=== PATIENT | female | born 1950 | race Caucasian/White ===

== ENCOUNTER → 2016-07-09 | Outpatient (CLI) | payer MEDICARE ==
[2016-07-09 13:05] LABS: Blood Urea Nitrogen 18 mg/dL (7-17); Non-African American GFR(MDRD) >60 (>60 ml/min/1.73 sqM)
--- NOTE | 2016-07-09 15:41 | MR ---
EXAMINATION TYPE: MR shoulder RT w con DATE OF EXAM: 07/09/2016 1:52 PM COMPARISON: Prior MRI right shoulder August 09, 2014 HISTORY: Rotator cuff tear per order. Right shoulder pain with difficulty raising overhead, history o f surgery rotator cuff November 20, 2015. TECHNIQUE: Multiplanar, multisequence images of the right shoulder is performed with 15 mL intravenou s MultiHance gadolinium contrast. FINDINGS: Exam is suboptimal as is degraded by patient body habitus and motion. Rotator Cuff: There is artifact from rotator cuff surgical repair in the humeral head now present. There is completely retracted tear of supraspinatus tendon with tendon retraction to the clavicle lev el seen best on paracoronal image 11 noted. There is moderate to advanced atrophy of supraspinatus mu scle bulk redemonstrated. The infraspinatus tendon is felt to remain intact. High riding humeral head is redemonstrated. Retracted tear of subscapularis tendon is felt present. Acromioclavicular Joint: There is capsular hypertrophy and heterogeneous enhancement at acromioclavic ular joint. Spurring is seen. Glenohumeral Joint: There is moderate to severe glenohumeral joint effusion. There is abnormal fluid and rim enhancement of fluid collection surrounding glenoid cavity and the humeral head. Fluid extend s into subdeltoid bursa. Infected or inflammatory joint is to be considered. Consider imaging guided aspiration to further assess. There is joint space loss and edematous change along the superior gleno id. Labrum: Normal-appearing superior labrum is not identified, complete tear is felt present.. Biceps Tendon: The long head of biceps is in was not well seen in normal location within bicipital gr oove, consider medial dislocation. Bone marrow signal: No focal abnormal marrow signal is appreciated. Other: No additional significant abnormality is appreciated. IMPRESSION: 1. Interval attempted rotator cuff surgical repair with full-thickness retracted tear of supraspinatu s tendon now present. Muscular atrophy and high riding humeral head suggests this may be chronic in a ge since 2014 study. 2. Moderate to severe degenerative changes glenohumeral and acromioclavicular joint as detailed above . Infectious or inflammatory process glenohumeral joint cannot be excluded as there is rim-enhancing fluid collection or joint effusion. Consider imaging guided sampling to further assess. 3. Probable full-thickness retracted tears subscapularis tendon. 4. Superior labral tear. 5. Other findings as noted above
== END | disposition home or self-care (01) ==
LOC: RADMRIMAIN 12:44
PROVIDERS: ATTEND Family Medicine
DX: M75.121 Complete rotator cuff tear or rupture of right shoulder, not specified as traumatic (principal); M62.521 Muscle wasting and atrophy, not elsewhere classified, right upper arm; M19.011 Primary osteoarthritis, right shoulder; S43.431A Superior glenoid labrum lesion of right shoulder, initial encounter
CPT/HCPCS: 82565; 84520; 73222; A9577

== ENCOUNTER 2020-02-18 15:49 | Emergency (ER) | payer MEDICARE ==
[2020-02-18 15:55] VITALS: RESP 18
--- NOTE | 2020-02-18 16:33 | ED ---
Fall HPI - General Chief Complaint: Fall Stated Complaint: Fall,head injury Time Seen by Provider: 02/18/20 15:56 Source: patient, RN notes reviewed Mode of arrival: wheelchair - History of Present Illness Initial Comments: This is a 70-year-old female who states she tripped over some concrete and fell backwards hitting the left side of her head against a concrete pilon. She d enies any loss of consciousness but did state she was slightly days for a brief second or 2. She complains of left-sided head pain and some right-sided neck pain. She does have a history of a cage placement to C4 in the past. She denies any numbness tingling or loss of function no other injuries reported. No other modifying factors. MD Complaint: fall - Related Data Home Medications Medication Instructions Recorded Confirmed ALPRAZolam [Xanax] 0.25 mg PO TID PRN 11/19/15 11/20/15 Albuterol Inhaler (Mhu) [Ventolin 2 puff INHALATION DIRECTED PRN 11/19/15 11/20/15 Hfa Inhaler (Mhu)] Atorvastatin [Lipitor] 20 mg PO DAILY 11/19/15 11/20/15 Cholecalciferol [Vitamin D3] 2,000 unit PO DAILY 11/19/15 11/20/15 FLUoxetine HCL [Fluoxetine HCl] 60 mg PO DAILY 11/19/15 11/20/15 Fenofibrate,Micronized 134 mg PO DAILY 11/19/15 11/20/15 [Fenofibrate] Ferrous Sulfate [Feosol] 325 mg PO DAILY 11/19/15 11/20/15 Fluticasone Nasal [place] [Flonase 1 spr EA NOSTRIL DAILY PRN 11/19/15 11/20/15 Nasal [place]] Gabapentin [Neurontin] 600 mg PO BID 11/19/15 11/20/15 Hydrocodone/Acetaminophen 1 tab PO DIRECTED PRN 11/19/15 11/20/15 [Hydrocodon-Acetaminophn 10-325] Ibandronate Sodium 150 mg PO Q30D 11/19/15 11/20/15 Naproxen 500 mg PO BID PRN 11/19/15 11/20/15 Omeprazole [PriLOSEC] 20 mg PO BID 11/19/15 11/20/15 Propranolol [Inderal] 40 mg PO BID 11/19/15 11/20/15 hydroCHLOROthiazide 25 mg PO DAILY 11/19/15 11/20/15 lamoTRIgine [Lamotrigine] 100 mg PO BID 11/19/15 11/20/15 Previous Rx's Medication Instructions Recorded Hydrocodone/Acetaminophen [[place] 1 each PO Q6H PRN #40 tab 11/20/15 10-325] Allergies Allergy/AdvReac Type Severity Reaction Status Date / Time latex Allergy Itching Verified 02/18/20 15:55 amoxicillin trihydrate AdvReac Nausea & Verified 02/18/20 15:55 [From Augmentin] Vomiting clarithromycin [From Biaxin] AdvReac Nausea & Verified 02/18/20 15:55 Vomiting & Diarrhea potassium clavulanate AdvReac Nausea & Verified 02/18/20 15:55 [From Augmentin] Vomiting Review of Systems ROS Statement: Those systems with pertinent positive or pertinent negative responses have been documented in the HPI. ROS Other: All systems not noted in ROS Statement are negative. Past Medical History Past Medical History: Asthma, Fibromyalgia, GERD/Reflux, Hyperlipidemia, Hype rtension, Rheumatoid Arthritis (RA) Additional Past Medical History / Comment(s): IBS, OSTEOPOROSIS History of Any Multi-Drug Resistant Organisms: None Reported Past Surgical History: Heart Catheterization, Hysterectomy, Orthopedic Surgery, Tonsillectomy Additional Past Surgical History / Comment(s): SINUS SX, LEFT FOOT SX, RYAN EYE LID SX Past Anesthesia/Blood Transfusion Reactions: Postoperative Nausea & Vomiting (PONV) Past Psychological History: Depression Past Alcohol Use History: Rare Past Drug Use History: Marijuana - Past Family History Mother Family Medical History: Cancer Additional Family Medical History / Comment(s): LUNG, CERVICAL General Exam - General Exam Comments Initial Comments: This is a well-developed sec appearing female who is awake alert oriented 3 with a Lilian Coma Scale of 15 Limitations: no limitations General appearance: alert, in no apparent distress Head exam: Present: normocephalic, normal inspection, other (Tenderness palpation of left occipital parietal scalp some swelling noted no open wounds no abrasions no step-off or crepitation.) Eye exam: Present: normal appearance, PERRL, EOMI. Absent: scleral icterus, conjunctival injection, periorbital swelling ENT exam: Present: normal exam, mucous membranes moist Neck exam: Present: normal inspection, tenderness (Tenderness palpation over the right posterior lateral trapezius musculature of the neck no definite cervical spinous process tenderness. This does radiate down to the right shoulder.), f ull ROM. Absent: meningismus, lymphadenopathy Respiratory exam: Present: normal lung sounds bilaterally. Absent: respiratory distress, wheezes, rales, rhonchi, stridor Cardiovascular Exam: Present: regular rate, normal rhythm, normal heart sounds. Absent: systolic murmur, diastolic murmur, rubs, gallop, clicks GI/Abdominal exam: Present: soft, normal bowel sounds. Absent: distended, tenderness, guarding, rebound, rigid Extremities exam: Present: normal inspection, full ROM, tenderness (Tenderness palpation of the anterior portion of the shoulder with no definite subluxation. No step-off or crepitation.), normal capillary refill. Absent: pedal edema, joint swelling, calf tenderness Back exam: Present: normal inspection Neurological exam: Present: alert, oriented X3, CN II-XII intact Psychiatric exam: Present: normal affect, normal mood Skin exam: Present: warm, dry, intact, normal color. Absent: rash Course Vital Signs 02/18/20 02/18/20 15:50 16:53 Temperature 98.2 F 98.0 F Pulse Rate 69 64 Respiratory 18 18 Rate Blood Pressure 113/46 108/58 O2 Sat by Pulse 97 99 Oximetry - Reevaluation(s) Reevaluation #1: 02/18/20 16:33 The patient was offered pain medication and does not feel she needs any at this time. Medical Decision Making - Medical Decision Making I did discuss [employer] the patient and her who was present. Patient be discharged she states she does not need any pain medication at this time. We did discuss I seen any affected areas 4-48 hours. - Radiology Data Radiology results: report reviewed (I did review the imaging and report no acute findings with respect to any cranial pathology cervical pathology the right shoulder x-ray does demonstrate degenerative changes but nothing acute.), image reviewed Disposition Clinical Impression: Fall, Scalp contusion, Contusion of right shoulder, Cervical strain Disposition: HOME SELF-CARE Condition: Good Instructions (If sedation given, give patient instructions): Contusion in Adults (ED), Scalp Contusion in Adults (ED) Additional Instructions: Ice 24-48 hours to the affected areas warm compresses afterward. Is patient prescribed a controlled substance at d/c from ED?: No Referrals: Ren Cochran MD [Primary Care Provider] - 1-2 days
--- NOTE | 2020-02-18 16:43 | CT ---
EXAMINATION TYPE: CT brain risa wo con DATE OF EXAM: 02/18/2020 COMPARISON: None HISTORY: Trauma. Headache and neck pain status post fall. TECHNIQUE: CT scan of the head and cervical spine are performed without contrast. FINDINGS: There is no acute intracranial hemorrhage, mass effect, or midline shift identified. The ventricles and sulci are within normal limits in size. No extra-axial fluid collection. Cranium is intact. The globes are grossly symmetric. The visualized sinuses and mastoid air cells are clear. Cervical spine is visualized in its entirety from C1 through upper thoracic levels and demonstrates n o acute fracture or dislocation. There is cervical spine fixation hardware from C3 through C6. Multi level disc space narrowing. There is severe disc space narrowing with vacuum disc phenomenon and disc ussed by complex at C6-C7. Grade 1 anterolisthesis of C7 on T1 and of T2 on T3. Cystic change of the dens without fracture. Prevertebral soft tissue appears within normal limits. The C1-C2 articulation is maintained. 3.1 cm lipoma of the right upper back. IMPRESSION: 1. There is no acute fracture or dislocation evident in the cervical spine. 2. No acute intracranial hemorrhage, mass effect, or midline shift is seen.
--- NOTE | 2020-02-18 16:44 | XR ---
EXAMINATION TYPE: XR shoulder complete RT DATE OF EXAM: 02/18/2020 COMPARISON: None HISTORY: Pain. Fall. TECHNIQUE: 3 views FINDINGS: There is severe narrowing of the glenohumeral joint space. There is severe narrowing of the subacromial joint space which is obliterated. The scapula is intact. I see no fracture. IMPRESSION: Severe subacromial joint space narrowing and impingement. Moderate osteoarthritis. No fra cture.
[2020-02-18 16:56] VITALS: BP 108/58; PULSE 64; TEMP 98
== END 2020-02-18 17:17 | disposition home or self-care (01) ==
LOC: EC 15:49
DX: S00.03XA Contusion of scalp, initial encounter (principal); S40.011A Contusion of right shoulder, initial encounter; S16.1XXA Strain of muscle, fascia and tendon at neck level, initial encounter; F32.9 Major depressive disorder, single episode, unspecified; K21.9 Gastro-esophageal reflux disease without esophagitis; E78.5 Hyperlipidemia, unspecified; I10 Essential (primary) hypertension; J45.909 Unspecified asthma, uncomplicated; M06.9 Rheumatoid arthritis, unspecified; Z79.899 Other long term (current) drug therapy; Z95.5 Presence of coronary angioplasty implant and graft; W01.198A Fall on same level from slipping, tripping and stumbling with subsequent striking against other object, initial encounter; Y92.89 Other specified places as the place of occurrence of the external cause; Z88.1 Allergy status to other antibiotic agents; Z88.0 Allergy status to penicillin; Z91.040 Latex allergy status
CPT/HCPCS: 70450; 72125; 99284